=== PATIENT | female | born 1965 | race Caucasian/White ===

== ENCOUNTER → 2017-04-13 09:00 | Outpatient (CLI) | payer BC ==
[2013-09-14 08:11] VITALS: BMI 31.6
[~2017-04-13 09:00] MED LIST: CARAFATE1 G PO; NORCO 10/325 TA1 TA1 PO; PRILOSEC20 MG
== END | disposition home or self-care (01) ==
LOC: D.RAD 09:00
DX: R10.9 Unspecified abdominal pain (principal); R19.7 Diarrhea, unspecified

== ENCOUNTER → 2020-12-13 15:52 | Outpatient (CLI) | payer BC ==
[2013-09-14 08:11] VITALS: BMI 31.6
== END | disposition home or self-care (01) ==
LOC: D.CT 15:52
PROVIDERS: ATTEND Nurse Practitioner
DX: R10.9 Unspecified abdominal pain (principal)